=== PATIENT | female | born 1960 | race Asian ===

== ENCOUNTER 2021-08-25 13:04 | Emergency (ER) | payer SELFPAY ==
[2021-08-25] MEDS ORDERED: Albuterol 200 PUFF (6.7GM INHALER) ONE (14:07)
[2021-08-25] MEDS ORDERED: Diazepam 5 MG TAB ONE (14:07)
== END 2021-08-25 14:20 | disposition home or self-care (01) ==
LOC: MADERS 13:04
DX: J01.90 Acute sinusitis, unspecified (principal); B96.89 Other specified bacterial agents as the cause of diseases classified elsewhere; J20.9 Acute bronchitis, unspecified; E11.9 Type 2 diabetes mellitus without complications; Z79.84 Long term (current) use of oral hypoglycemic drugs
CPT/HCPCS: 71046